=== PATIENT | female | born 1995 | race Hispanic/Latino ===

== ENCOUNTER 2018-12-03 00:28 | Emergency (ER) | payer SELFPAY ==
[2018-12-03] MEDS ORDERED: Ketorolac Tromethamine 30 MG/ML VIAL ONE (01:58)
[2018-12-03 02:04] LABS: #Basophils 0.1 thou/uL (0.0-0.2); #Eosinphils 0.2 thou/uL (0.0-0.7); #Lymphocytes 3.1 thou/uL (1.20-3.40); #Monocytes 0.8 thou/uL (0.11-0.59); #Neutrophils 6.5 thou/uL (1.40-6.50); %Basophils 0.5 % (0.0-1.0); %Eosinophils 2.1 % (0.0-10.0); %Lymphocytes 29.3 % (21.0-51.0); %Monocytes 7.5 % (0.0-10.0); %Neutrophils 60.6 % (42.0-75.0); Hemoglobin 12.6 g/dL (12.0-16.0); Mean Corpuscular HGB CONC 32.4 g/dL (32.0-36.0); Mean Corpuscular Hemoglobin 24.8 pg (27.0-31.0); Mean Corpuscular Volume 76.5 fL (78.0-98.0); Mean Platelet Volume 7.6 fL (7.4-10.4); Platelet Count 327 thou/uL (130-400); RBC Distribution Width 14.7 % (11.5-14.5); Red Blood Cell (RBC) Count 5.08 mill/uL (4.20-5.40); White Blood Cell (WBC) Count 10.7 thou/uL (4.8-10.8)
[2018-12-03 02:24] LABS: ALT (SGPT) 66 U/L (8-55); AST (SGOT) 31 U/L (5-34); Albumin 4.3 g/dL (3.5-5.0); Alkaline Phosphatase 112 U/L (40-150); Anion Gap 15 mmol/L (10-20); BUN (Urea Nitrogen) 16 mg/dL (7.0-18.7); Bilirubin, Total 0.3 mg/dL (0.2-1.2); Calc. Creatinine Clearance 0 mL/min (70-130); Calcium 9.8 mg/dL (7.8-10.44); Carbon Dioxide 25 mmol/L (22-29); Chloride 106 mmol/L (98-107); Estimated GFR-MDRD Greater than 90; Globulin 2.9 g/dL (2.4-3.5); Glucose 98 mg/dL (70-105); Lipase 20 U/L (8-78); Magnesium 2.1 mg/dL (1.6-2.6); Potassium 3.7 mmol/L (3.5-5.1); Protein, Total 7.2 g/dL (6.0-8.3); Sodium 142 mmol/L (136-145)
[2018-12-03 03:09] LABS: Bilirubin Negative (Negative); Blood, Urine Negative (Negative); Clarity CLOUDY (Clear); Glucose, Urine (Dipstick) Negative (Negative); Leukocyte Negative (Negative); Nitrite Negative (Negative); Protein, Urine (Dipstick) Negative (Neg-Trace); Specific Gravity, Urine 1.029 (1.002-1.036); Urobilinogen 0.2 mg/dL (0.2-1.0)
[2018-12-03 03:13] LABS: Pregnancy Test - Urine (BHCG) Negative (Negative); Pregu Control Background? CLEAR/WHITE (CLR/WHITE); Pregu Control Bar Appear? YES (CONTROL BAR); Specific Gravity 1.025 (1.002-1.036)
--- NOTE | 2018-12-03 08:24 | RAD ---
EXAM: Single view of the chest HISTORY: Chest pain COMPARISON: 10/29/2018 FINDINGS: Single view of the chest shows a normal sized cardiomediastinal silhouette. There is no leslie dence of consolidation, mass, or pleural effusion. The bones are unremarkable. IMPRESSION: No evidence of acute cardiopulmonary disease
--- NOTE | 2018-12-03 08:41 | ULT ---
PRELIMINARY REPORT/[facility]/EMERGENCY AFTER HOURS PROCEDURE: EXAM: US Abdomen Limited, Right Upper Quadrant EXAM DATE/TIME: 12/03/2018 2:13 AM CLINICAL HISTORY: 23 years old, female; Pain; Other: Ruq oain TECHNIQUE: Imaging protocol: Real-time ultrasound of the abdomen with image documentation. Examination was focus ed on the right upper quadrant. COMPARISON: No relevant prior studies available. FINDINGS: Liver: No evidence of a liver mass. Gallbladder: No gallstones, wall thickening or pericholecystic fluid. Negative sonographic Yoon's s ign reported. Common bile duct: The common bile duct measures 2 mm. Pancreas: The pancreas is not well-visualized secondary to bowel gas. Right kidney: Normal appearance of the right kidney with normal cortical echogenicity and without hydronephrosis or mass. The right kidney measures 11.4 x 4.9 x 5.5 cm. IMPRESSION: No evidence of acute cholecystitis or right renal hydronephrosis. Thank you for allowing us to participate in the care of your patient. Dictated and Authenticated by: Leatha Tracy MD 12/03/2018 3:53 AM Central Time ([place] & [place]) FINAL REPORT RIGHT UPPER QUADRANT ULTRASOUND: I agree with the preliminary report given by Dr. Leatha Tracy of [employer]. POS: [facility]
== END 2018-12-03 04:05 | disposition home or self-care (01) ==
LOC: ERS 00:28
DX: K82.8 Other specified diseases of gallbladder (principal); E11.9 Type 2 diabetes mellitus without complications
CPT/HCPCS: 36415; 71045; 76705; 80053; 81003; 81025; 83690; 83735; 85025; 93005; 96372; 96374; J0500; J1885